=== PATIENT | female | born 1935 | race Caucasian/White ===

== ENCOUNTER → 2017-07-23 | Outpatient (CLI) | payer OTHER ==
--- NOTE | 2017-07-23 14:32 | RAD ---
DATE: 07/23/2017 EXAM: DIGITAL DIAGNOSTIC RT, BREAST RIGHT HISTORY: New density in the right breast COMPARISON: Screening mammogram 07/15/2017, 07/12/2016, 06/23/2015 This study was interpreted with the benefit of Computerized Aided Detection (CAD). The breast parenchyma shows scattered fibroglandular densities. Breast parenchyma level B. FINDINGS: Diagnostic right breast mammogram: Digital 2-D spot compression CC and MLO views, full field CC rolled views and full field ML view were obtained of the right breast. There is a 3 mm asymmetry were persists on the spot compression cc view in the lateral right breast at the junction of the middle and posterior depth which is not definitely identified on the lateral view. Right breast ultrasound: Survey of the entire right breast with no suspicious mass or fluid collection identified. IMPRESSION: Image asymmetry in the lateral right breast at the junction of middle and posterior depth which appears to persist on the compression images, however no correlate is identified on whole right breast ultrasound. Diagnostic right breast mammogram in 6 months to include spot compression CC tomosynthesis view is recommended. BI-RADS CATEGORY: 3 PROBABLY BENIGN FINDING(S)-SHORT INTERVAL FOLLOW-UP SUGGESTED RECOMMENDED FOLLOW-UP: 6M 6 MONTH FOLLOW-UP PQRS compliance statement: Patient information was entered into a reminder system with a target due date for the next mammogram. Mammography is a sensitive method for finding small breast cancers, but it does not detect them all and is not a substitute for careful clinical examination. A negative mammogram does not negate a clinically suspicious finding and should not result in delay in biopsying a clinically suspicious abnormality. "Our facility is accredited by the [employer] Mammography Program."
== END | disposition home or self-care (01) ==
LOC: MAMMO 13:02
PROVIDERS: ATTEND Family Medicine
DX: N64.89 Other specified disorders of breast (principal)
CPT/HCPCS: 76641; G0206; 77065

== ENCOUNTER → 2018-01-21 | Outpatient (CLI) | payer OTHER | END | disposition home or self-care (01) | LOC: MAMMO 09:13 | DX: R92.8 Other abnormal and inconclusive findings on diagnostic imaging of breast (principal) | CPT/HCPCS: 77065 ==

== ENCOUNTER → 2018-09-08 | Outpatient (CLI) | payer OTHER ==
--- NOTE | 2018-09-08 14:40 | RAD ---
DATE: 09/08/2018 3:30 PM EXAM: DIGITAL DIAGNOSTIC BILATERAL HISTORY: further evaluation of a finding noted on her most recent screening mammographic examination. On that examination a focal asymmetry was reported within the right breast COMPARISON: 01/21/2018, prior mammographic imaging dating back to 05/02/2010 Bilateral full field craniocaudal and mediolateral oblique images were obtained using digital technique. This study was interpreted with the benefit of Computerized Aided Detection (CAD ). Breast Density: The breast parenchyma is primarily fatty replaced. Breast parenchyma level density A. FINDINGS: Benign calcifications are present. The parenchymal pattern appears stable. The previously seen asymmetry in the right breast is no longer seen on today's examination. No suspicious masses, microcalcifications or architectural distortion is present to suggest malignancy in either breast. The visualized axillae are unremarkable. IMPRESSION: No mammographic evidence of malignancy. BI-RADS CATEGORY: 2 BENIGN FINDING(S) RECOMMENDED FOLLOW-UP: 12M 12 MONTH FOLLOW-UP Annual screening mammography is recommended, unless clinically indicated sooner based on symptoms or change in physical exam. PQRS compliance statement: Patient information was entered into a reminder system with a target due date 09/08/2019 for the next mammogram. Mammography is a sensitive method for finding small breast cancers, but it does not detect them all and is not a substitute for careful clinical examination. A negative mammogram does not negate a clinically suspicious finding and should not result in delay in biopsying a clinically suspicious abnormality. "Our facility is accredited by the [employer] Mammography Program." NAMITAD
== END | disposition home or self-care (01) ==
LOC: MAMMO 13:24
PROVIDERS: ATTEND Family Medicine
DX: R92.8 Other abnormal and inconclusive findings on diagnostic imaging of breast (principal)
CPT/HCPCS: 77066

== ENCOUNTER → 2019-02-04 | Outpatient (CLI) | payer OTHER ==
--- NOTE | 2019-02-04 14:42 | KCIC ---
Carotid doppler ultrasound History: Memory loss Multiple grayscale, color, and duplex spectral analysis waveform sonographic images were acquired of the carotid, subclavian, and vertebral arteries. Comparison: None Findings: RIGHT: PSV cm/sec EDV cm/sec Common carotid artery 61 18 Maximal internal carotid artery 74 22 External carotid artery 62 Vertebral artery 32 ICA/CCA ratio 1.07 LEFT: PSV cm/sec EDV cm/sec Common carotid artery 52 16 Maximum internal carotid artery 68 22 External carotid artery 69 Vertebral artery 37 ICA/CCA ratio 0.91 Velocities used to determine stenosis are known to correlate with NASCET angiographic criteria. There is antegrade flow in the bilateral vertebral arteries. No significant stenosis is demonstrated on grayscale or color images. Impression: 1. There is no evidence of a hemodynamically significant stenosis. Electronically signed by: Olaf Colon MD (02/04/2019 2:39 PM) [id number]
== END | disposition home or self-care (01) ==
LOC: KCIC US 12:10
PROVIDERS: ATTEND Family Medicine
DX: R41.3 Other amnesia (principal)
CPT/HCPCS: 93880

== ENCOUNTER → 2019-04-03 | Outpatient (CLI) | payer OTHER ==
--- NOTE | 2019-04-03 14:56 | CARD ---
MR#: [id number] Date of Study: 04/03/2019 Ordering Physician: RINA HA, Referring Physician: RINA HA Tech: Margret Linares [facility] APPROVED REPORT EXAM: Two-dimensional and M-mode echocardiogram with Doppler and color Doppler. Other Information Quality : GoodHR: 60bpm Rhythm : NSR INDICATION Abnormal MRI 2D DIMENSIONS RVDd3.4 (2.9-3.5cm)Left Atrium(2D)4.5 (1.6-4.0cm) IVSd1.0 (0.7-1.1cm)Aortic Root(2D)3.1 (2.0-3.7cm) LVDd4.9 (3.9-5.9cm)LVOT Diameter2.0 (1.8-2.4cm) PWd1.0 (0.7-1.1cm)LVDs3.3 (2.5-4.0cm) FS (%) 32.1 %SV67.3 ml LVEF(%)60.1 (>50%) M-Mode DIMENSIONS Left Atrium(MM)4.03 (2.5-4.0cm)Aortic Root2.92 (2.2-3.7cm) Aortic Valve AoV Peak Leno.109.9cm/sAoV VTI20.5cm AO Peak GR.4.8mmHgLVOT Peak Leno.91.4cm/s AO Mean GR.2mmHgAVA (VMAX)2.55cm2 QUIRINO (VTI)2.60cm2 Mitral Valve MV E Sacvudjj585.0cm/sMV DECEL [id number] MV A Ifampplj21.1cm/sE/A Ratio1.6 Pulmonary Valve PV Peak Mrlyhoyc94.9cm/s Tricuspid Valve TR P. Gdjqnuiy543gc/sRAP ZMFMEWNY4mpIy TR Peak Gr.66xyIeNOBS94cjRw Pulmonary Vein S1 Yfdbfidh13.7cm/sD2 Gntsampf02.6cm/s PVa wqikqgsj42ptnx LEFT VENTRICLE The left ventricle is normal size. There is normal left ventricular wall thickness. The left ventricu lar systolic function is normal and the ejection fraction is within normal range. The Ejection Fracti on is 55-60%. There is normal LV segmental wall motion. Transmitral Doppler flow pattern is Grade II- pseudonormal filling dynamics. RIGHT VENTRICLE The right ventricle is normal size. There is normal right ventricular wall thickness. The right ventr icular systolic function is normal. ATRIA The left atrium is moderately dilated. The right atrium is mildly dilated. The interatrial septum is intact with no evidence for an atrial septal defect or patent foramen ovale as noted on 2-D or Dopple r imaging. AORTIC VALVE The aortic valve is normal in structure and function. The aortic valve is trileaflet. Doppler and Col or Flow revealed no significant aortic regurgitation. There is no significant aortic valvular stenosi s. There is no aortic valvular vegetation. MITRAL VALVE The mitral valve is normal in structure and function. There is no evidence of mitral valve prolapse. There is no mitral valve stenosis. Doppler and Color-flow revealed mild mitral regurgitation. TRICUSPID VALVE The tricuspid valve is normal in structure and function. Doppler and Color Flow revealed trace to mil d tricuspid regurgitation. There is mild pulmonary hypertension. The PA pressure was estimated at 35 mmHg. There is no tricuspid valve prolapse or vegetation. There is no tricuspid valve stenosis. PULMONIC VALVE The pulmonary valve is normal in structure and function. Doppler and Color Flow revealed no pulmonic valvular regurgitation. There is no pulmonic valvular stenosis. GREAT VESSELS The aortic root is normal in size. The ascending aorta is normal in size. The IVC is normal in size a nd collapses >50% with inspiration. PERICARDIAL EFFUSION There is no evidence of significant pericardial effusion. Critical Notification Critical Value: No <Conclusion> The left ventricular systolic function is normal and the ejection fraction is within normal range. Th e Ejection Fraction is 55-60%. There is normal LV segmental wall motion. Doppler and Color Flow revealed trace to mild tricuspid regurgitation. There is mild pulmonary hypert ension. The PA pressure was estimated at 35 mmHg. Signed by : Spencer Pack, Electronically Approved : 04/03/2019 14:55:40
== END | disposition home or self-care (01) ==
LOC: ECHO 13:49
PROVIDERS: ATTEND Family Medicine
DX: I07.1 Rheumatic tricuspid insufficiency (principal); I27.20 Pulmonary hypertension, unspecified
CPT/HCPCS: 93306

== ENCOUNTER → 2019-09-24 | Outpatient (CLI) | payer MEDICARE, OTHER ==
--- NOTE | 2019-09-25 07:48 | RAD ---
History: Routine Screening. Technique: Bilateral digital mammographic routine views were obtained with CAD - computer aided detection. 2D and 3D imaging was performed. Comparison: 09/08/2018. Findings: Breast Tissue Density A : The breast tissue is predominately fatty replaced. There are no suspicious masses, microcalcifications or areas of architectural distortion. Impression: Negative mammogram. BI-RADS Category 1: Negative. Normal interval followup. . A mammogram does not have 100% sensitivity and therefore a negative imaging study should not delay further work up of a suspicious abnormality. The patient will receive a letter with the results in the mail. Patient information is entered into the reminder system with a target due date for the next screening mammogram. The patient will receive a reminder. "Our facility is accredited by the [employer] Mammography Program." BI-RADS 1 -- negative findings (within normal)
== END | disposition home or self-care (01) ==
LOC: MAMMO 12:25
PROVIDERS: ATTEND Family Medicine
DX: Z12.31 Encounter for screening mammogram for malignant neoplasm of breast (principal)
CPT/HCPCS: 77063; 77067

== ENCOUNTER → 2020-10-20 | Outpatient (CLI) | payer MEDICARE ==
--- NOTE | 2020-10-20 17:05 | CARD ---
MR#: [id number] Date of Study: 10/20/2020 Ordering Physician: JT CANDELARIO, Referring Physician: JT CANDELARIO, Tech: Juliana Rinaldi [facility] APPROVED REPORT EXAM: Two-dimensional and M-mode echocardiogram with Doppler and color Doppler. Other Information Quality : Good INDICATION Murmur 2D DIMENSIONS RVDd3.1 (2.9-3.5cm)Left Atrium(2D)3.8 (1.6-4.0cm) IVSd0.9 (0.7-1.1cm)Aortic Root(2D)2.7 (2.0-3.7cm) LVDd5.3 (3.9-5.9cm)LVOT Diameter2.0 (1.8-2.4cm) PWd0.8 (0.7-1.1cm)LVDs3.5 (2.5-4.0cm) FS (%) 33.5 %SV83.4 ml LVEF(%)61.8 (>50%) Aortic Valve AoV Peak Leno.130.8cm/sAoV VTI24.2cm AO Peak GR.6.8mmHgLVOT Peak Leno.108.5cm/s LVOT VTI 21.76cmAO Mean GR.3mmHg QUIRINO (VMAX)2.09qy6OLD (VTI)2.92cm2 Mitral Valve MV E Fqqkrsza96.7cm/sMV DECEL [id number] MV A Dttcprdo91.8cm/sMV JKO14be E/A Ratio1.5MVA (PHT)3.55cm2 TDI E/Lateral E'23.3E/Medial E'13.3 Tricuspid Valve TR P. Wqehnppf310gv/sRAP SCSNMXNH9yuJf TR Peak Gr.89xrTpOSNL19nsDf Pulmonary Vein S1 Fojydgfy95.8cm/sD2 Gclsgwlj67.1cm/s LEFT VENTRICLE The left ventricle is normal size. There is normal left ventricular wall thickness. The left ventricu lar systolic function is normal. The Ejection Fraction is 55-60%. There is normal LV segmental wall m otion. Transmitral Doppler flow pattern is Grade II-pseudonormal filling dynamics. RIGHT VENTRICLE The right ventricle is normal size. The right ventricular systolic function is normal. ATRIA The left atrium is mildly dilated. The right atrium is mildly dilated. The interatrial septum is inta ct with no evidence for an atrial septal defect or patent foramen ovale as noted on 2-D or Doppler im aging. AORTIC VALVE The aortic valve is calcified but opens well. Doppler and Color Flow revealed no significant aortic r egurgitation. There is no significant aortic valvular stenosis. MITRAL VALVE The mitral valve is calcified but opens well. Mitral annular calcification is mild. There is no evide nce of mitral valve prolapse. There is no mitral valve stenosis. Doppler and Color-flow revealed mild mitral regurgitation. TRICUSPID VALVE The tricuspid valve is normal in structure and function. Doppler and Color Flow revealed mild tricusp id regurgitation. There is mild pulmonary hypertension. The PA pressure was estimated at 33 mmHg. The re is no tricuspid valve stenosis. PULMONIC VALVE The pulmonic valve is not well visualized. Doppler and Color Flow revealed mild pulmonic valvular reg urgitation. There is no pulmonic valvular stenosis. GREAT VESSELS The aortic root is normal in size. The ascending aorta is mildly dilated at 3.6 cm. The IVC is normal in size and collapses >50% with inspiration. PERICARDIAL EFFUSION There is no evidence of significant pericardial effusion. Critical Notification Critical Value: No <Conclusion> The left ventricular systolic function is normal. The Ejection Fraction is 55-60%. There is normal LV segmental wall motion. Transmitral Doppler flow pattern is Grade II-pseudonormal filling dynamics. Mild mitral regurgitation. Mild tricuspid regurgitation. There is mild pulmonary hypertension. The PA pressure was estimated at 33 mmHg. There is no evidence of significant pericardial effusion. Signed by : Randy Bocanegra, Electronically Approved : 10/20/2020 17:05:26
== END ==
LOC: ECHO 15:00
PROVIDERS: ATTEND Internal Medicine Cardiovascular Disease
DX: I08.8 Other rheumatic multiple valve diseases (principal); I27.20 Pulmonary hypertension, unspecified
CPT/HCPCS: 93306

== ENCOUNTER → 2021-02-15 | Outpatient (CLI) | payer MEDICARE ==
--- NOTE | 2021-02-15 16:28 | RAD ---
EXAM: BILATERAL DIGITAL 3D SCREENING MAMMOGRAPHY. HISTORY: Routine mammographic screening. TECHNIQUE: Bilateral digital 3D and tomographic images were obtained in CC and MLO projections. Compu ter-aided detection was applied. COMPARISON: 09/24/2019, at 09/08/2018. COMPOSITION: B. There are scattered areas of fibroglandular density. FINDINGS: There are no suspicious masses, microcalcifications or architectural distortion. The parenc hymal pattern is stable. BI-RADS CATEGORY 2: Benign. RECOMMENDATION: 1. Routine screening mammography in one year. If mammography demonstrates dense breast tissue (heterogenously dense or extremely dense, category C or D), which could hide abnormalities, and if other risk factors for breast cancer have been identifi ed, supplemental screening tests that may be suggested by the ordering physician may be of benefit. D ense breast tissue, in and of itself, is a relatively common condition. Therefore, this information i s not provided to cause undue concern, but rather to raise awareness and to promote discussion with t he referring physician regarding the presence of other risk factors, in addition to dense breast tiss ue. The results of this mammography examination is provided to the patient and referring physician. T he patient should contact their referring physician if any questions or concerns exist regarding this report. PQRS compliance statement - Patient information was entered into a reminder system with a target due date for the next mammogram. "Our facility is accredited by the [employer] Mammography Program." Electronically signed by: Malcolm Hatch MD (02/15/2021 4:25 PM) [id number]
== END ==
LOC: MAMMO 12:33
PROVIDERS: ATTEND Nurse Practitioner Family
DX: Z12.31 Encounter for screening mammogram for malignant neoplasm of breast (principal)
CPT/HCPCS: 77063; 77067

== ENCOUNTER → 2021-02-23 | Outpatient (CLI) | payer MEDICARE ==
--- NOTE | 2021-02-23 16:21 | KCIC ---
EXAM: XR FOOT_LEFT 3 VIEWS 02/23/2021 2:20 PM CLINICAL INDICATION: Left foot pain for a couple weeks, no injury COMPARISON: None TECHNIQUE: 3 views of the left foot. FINDINGS: No acute fracture. There is hallux valgus. Mild joint space narrowing of the great toe MTP joint. There is a plantar calcaneal enthesophyte. Mild degenerative changes of the dorsal midfoot. So ft tissue is normal. IMPRESSION: 1. No acute osseous abnormality. 2. Hallux valgus and mild scattered degenerative joint disease. Electronically signed by: Helga Lemus MD (02/23/2021 4:18 PM) [id number]
== END ==
LOC: KCIC 13:55
PROVIDERS: ATTEND Nurse Practitioner Family
DX: M19.072 Primary osteoarthritis, left ankle and foot (principal); M20.12 Hallux valgus (acquired), left foot
CPT/HCPCS: 73630